=== PATIENT | male | born 1940 | race Caucasian/White ===

== ENCOUNTER 2019-11-19 12:16 | Observation (INO) ==
[2019-11-19] MEDS ORDERED: NS 0.9% 1000 ml BAG 1,000 ML IV ONE (12:49)
[2019-11-19] MEDS ORDERED: Metoprolol Tartrate 5 mg VIAL 5 ml VIAL (1 mg/ml) IV ONE ×2 (13:04→15:01)
[2019-11-19 13:57] LABS: ABS Lymphocytes 0.7 10^3/ul (1.0-4.8); ABS Monocytes 0.6 10^3/ul (0-0.8); ABS Neutrophils 4.5 10^3/ul (1.5-7.7); Eosinophil % 0.6 %; Hematocrit 40 % (42-52); Hemoglobin 13.4 g/dL (14.0-18.0); Lymphocyte % 12.7 %; Mean Corpuscular HGB Conc 34 g/dL (31-36); Mean Corpuscular Hemoglobin 31 pg (27-31); Mean Corpuscular Volume 91 fL (80-94); Mean Platelet Volume 8.8 fL (7.4-10.4); Platelet Count 146 10^3/uL (150-450); Red Blood Count 4.41 10^6 /uL (4.18-5.48); Red Cell Distribution Width 16 % (10-15); White Blood Count 5.8 10^3/uL (3.5-10.8)
[2019-11-19 14:03] LABS: INR 2.77 (0.82-1.09)
[2019-11-19 14:12] LABS: ALT 20 U/L (7-52); AST 19 U/L (13-39); Albumin 3.7 g/dL (3.2-5.2); Albumin/Globulin Ratio 1.4 (1-3); Alkaline Phosphatase 90 U/L (34-104); Anion Gap 5 mmol/L (2-11); BUN/Creatinine Ratio 25.6 (8-20); Blood Urea Nitrogen 21 mg/dL (6-24); CO2 Carbon Dioxide 27 mmol/L (22-32); Calcium 9.5 mg/dL (8.6-10.3); Chloride 109 mmol/L (101-111); EGFR African American 109.1 (>60); EGFR Non-African American 90.2 (>60); Globulin 2.6 g/dL (2-4); Glucose 109 mg/dL (70-100); Magnesium 2.1 mg/dL (1.9-2.7); Potassium 3.9 mmol/L (3.5-5.0); Sodium 141 mmol/L (135-145); Total Protein 6.3 g/dL (6.4-8.9)
[2019-11-19 14:21] LABS: Troponin I 0.03 ng/mL (<0.03)
[2019-11-19] MEDS ORDERED: Furosemide 40 mg/4 ml IV VIAL IV ONE (14:24)
[2019-11-19] MEDS ORDERED: Potassium Chlor 20 meq TAB.ER PO ONE (14:32)
[2019-11-19] MEDS ORDERED: Dextran 70/Hypromellose Tears Eye Drops 15 ml BTL (for Artificials Tears) BOTH EYES PRN (16:06)
[2019-11-19 17:07] LABS: Troponin I 0.03 ng/mL (<0.03)
[2019-11-19 18:20] LABS: TSH Ultra Thyroid Stim Horm 0.28 mcIU/mL (0.34-5.60)
[2019-11-19] MEDS: Warfarin DAILY REMINDER **NOTE FOLLOW UP SCH (18:22)
[2019-11-19 20:07] LABS: Troponin I 0.03 ng/mL (<0.03)
[2019-11-20 07:19] LABS: ABS Eosinophils 0.1 10^3/ul (0-0.6); ABS Monocytes 0.7 10^3/ul (0-0.8); ABS Neutrophils 4.5 10^3/ul (1.5-7.7); Eosinophil % 1.8 %; Hematocrit 38 % (42-52); Hemoglobin 13.3 g/dL (14.0-18.0); Lymphocyte % 15.3 %; Mean Corpuscular HGB Conc 35 g/dL (31-36); Mean Corpuscular Hemoglobin 32 pg (27-31); Mean Corpuscular Volume 92 fL (80-94); Mean Platelet Volume 9.3 fL (7.4-10.4); Nucleated Red Blood Cells % 0.1; Platelet Count 141 10^3/uL (150-450); Red Cell Distribution Width 16 % (10-15); White Blood Count 6.3 10^3/uL (3.5-10.8)
[2019-11-20 07:20] LABS: INR 2.82 (0.82-1.09)
[2019-11-20 07:36] LABS: BUN/Creatinine Ratio 27.4 (8-20); Calcium 9.6 mg/dL (8.6-10.3); EGFR African American 124.8 (>60); EGFR Non-African American 103.1 (>60); Potassium 3.8 mmol/L (3.5-5.0)
[2019-11-20] MEDS: Cholecalciferol (VIT D3) 1,000 unit TAB PO SCH (08:02)
[2019-11-20] MEDS: Aspirin EC 81 mg TAB.EC (enteric coated) PO SCH (08:02)
[2019-11-20] MEDS ORDERED: Furosemide 40 mg/4 ml IV VIAL IV SLOW PU SCH (09:00)
[2019-11-20] MEDS ORDERED: Perflutren Lipid Microsphere 3 ML VIAL ONE (13:52)
[2019-11-20 14:54] LABS: Free T4 0.97 ng/dL (0.61-1.12)
[2019-11-20] MEDS ORDERED: Furosemide 20 mg/2 ml IV VIAL IV SLOW PU ONE (17:14)
[2019-11-20] MEDS: Warfarin DAILY REMINDER **NOTE FOLLOW UP SCH (18:17)
[2019-11-21] MEDS: Aspirin EC 81 mg TAB.EC (enteric coated) PO SCH (08:47)
[2019-11-21] MEDS: Cholecalciferol (VIT D3) 1,000 unit TAB PO SCH (08:47)
[2019-11-21] MEDS ORDERED: Furosemide 20 mg/2 ml IV VIAL IV SLOW PU ONE (09:30)
[2019-11-21 09:58] VITALS: BP 143/71
== END 2019-11-21 11:50 | disposition home or self-care (01) ==
LOC: MEDTELE 12:16 → ED 12:16 → MEDTELE 16:54
PROVIDERS: ADMIT Internal Medicine; ATTEND Pediatrics

== ENCOUNTER 2021-03-04 15:57 | Inpatient (IN) ==
[2021-03-04] MEDS ORDERED: Furosemide 40 mg/4 ml IV VIAL IV SLOW PU ONE (18:14)
[2021-03-04 18:25] LABS: ABS Eosinophils 0.1 10^3/ul (0-0.6); ABS Lymphocytes 0.6 10^3/ul (1.0-4.8); ABS Monocytes 0.8 10^3/ul (0-0.8); ABS Neutrophils 6.1 10^3/ul (1.5-7.7); Hematocrit 35 % (42-52); Hemoglobin 12.2 g/dL (14.0-18.0); Lymphocyte % 8.4 %; Mean Corpuscular HGB Conc 35 g/dL (31-36); Mean Corpuscular Hemoglobin 32 pg (27-31); Mean Corpuscular Volume 91 fL (80-94); Mean Platelet Volume 8.6 fL (7.4-10.4); Platelet Count 260 10^3/uL (150-450); Red Blood Count 3.88 10^6 /uL (4.18-5.48); Red Cell Distribution Width 15 % (10-15); White Blood Count 7.6 10^3/uL (3.5-10.8)
[2021-03-04 19:23] LABS: Albumin 3.2 g/dL (3.2-5.2); Anion Gap 6 mmol/L (2-11); CO2 Carbon Dioxide 24 mmol/L (22-32); Calcium 9.5 mg/dL (8.6-10.3); Chloride 105 mmol/L (101-111); Sodium 135 mmol/L (135-145)
[2021-03-04 19:29] LABS: ALT 59 U/L (7-52); AST 70 U/L (13-39); Albumin/Globulin Ratio 0.8 (1-3); Alkaline Phosphatase 147 U/L (35-149); Blood Urea Nitrogen 30 mg/dL (6-24); Globulin 3.8 g/dL (2-4); Glucose 108 mg/dL (70-100); eGFR CKD-EPI 86.5 (>60)
[2021-03-04 19:45] LABS: Troponin I 0.03 ng/mL (<0.03)
[2021-03-04 20:03] LABS: Vitamin B12 444 pg/mL (180-914)
[2021-03-04 20:14] LABS: Ferritin > 1500.0 ng/mL (24-336)
[2021-03-04 21:14] LABS: Urine Appearance Cloudy; Urine Bilirubin Negative (Negative); Urine Blood 1+ (Negative); Urine Color Yellow; Urine Glucose Negative (Negative); Urine Ketones Negative (Negative); Urine Nitrite Negative (Negative); Urine Protein Negative (Negative); Urine Specific Gravity 1.013 (1.002-1.030); Urine Urobilinogen Negative (Negative)
[2021-03-04 21:24] LABS: Urine Bacteria 1+ (Absent); Urine Red Blood Cell 2+(6-10/hpf) (Absent); Urine Squamous Epithelial Cell Present (Absent); Urine White Blood Cell 3+(>20/hpf) (Absent)
[2021-03-04 22:06] LABS: C Reactive Protein 119.45 mg/L (<8.01)
[2021-03-05 00:18] LABS: TSH Ultra Thyroid Stim Horm 0.33 mcIU/mL (0.34-5.60)
[2021-03-05 01:37] LABS: Troponin I 0.02 ng/mL (<0.03)
[2021-03-05 06:06] LABS: ABS Eosinophils 0.1 10^3/ul (0-0.6); ABS Lymphocytes 0.5 10^3/ul (1.0-4.8); ABS Monocytes 0.7 10^3/ul (0-0.8); ABS Neutrophils 6.3 10^3/ul (1.5-7.7); Eosinophil % 1.5 %; Hematocrit 34 % (42-52); Hemoglobin 11.7 g/dL (14.0-18.0); Lymphocyte % 6.2 %; Mean Corpuscular HGB Conc 34 g/dL (31-36); Mean Corpuscular Hemoglobin 31 pg (27-31); Mean Corpuscular Volume 92 fL (80-94); Mean Platelet Volume 8.5 fL (7.4-10.4); Platelet Count 258 10^3/uL (150-450); Red Blood Count 3.74 10^6 /uL (4.18-5.48); Red Cell Distribution Width 15 % (10-15); White Blood Count 7.7 10^3/uL (3.5-10.8)
[2021-03-05] MEDS: cefTRIAXone 1 gm/50 mL NS BAG 1 GM/50 ML BAG IVPB SCH (06:22)
[2021-03-05 06:26] LABS: Albumin 2.8 g/dL (3.2-5.2); Albumin/Globulin Ratio 0.8 (1-3); Calcium 9.2 mg/dL (8.6-10.3); Globulin 3.7 g/dL (2-4); Potassium 3.6 mmol/L (3.5-5.0); Total Bilirubin 1.6 mg/dL (0.2-1.0); Total Protein 6.5 g/dL (6.4-8.9); eGFR CKD-EPI 78.9 (>60)
[2021-03-05 07:04] LABS: Free T4 1.13 ng/dL (0.61-1.12)
[2021-03-05] MEDS: Potassium Chlor 20 meq TAB.ER PO SCH (09:15)
[2021-03-05] MEDS: Aspirin EC 81 mg TAB.EC (enteric coated) PO SCH (09:15)
[2021-03-05] MEDS: Cholecalciferol (VIT D3) 1,000 unit TAB PO SCH (09:15)
[2021-03-05] MEDS: Furosemide 40 mg/4 ml IV VIAL IV SCH (09:16)
[2021-03-05] MEDS ORDERED: Iodixanol (CONTRAST) 320 MG/ML 100 ML SDV IV ONE (10:41)
[2021-03-06 00:08] LABS: Urine Appearance Clear; Urine Color Yellow; Urine pH 5 (5-9)
[2021-03-06 00:09] LABS: Urine Blood Negative (Negative); Urine Ketones Negative (Negative); Urine Protein Negative (Negative); Urine Urobilinogen Negative (Negative)
[2021-03-06 00:10] LABS: Urine Bilirubin Negative (Negative); Urine Glucose Negative (Negative); Urine Nitrite Negative (Negative)
[2021-03-06 00:11] LABS: Urine Bacteria Absent (Absent); Urine Red Blood Cell 2+(6-10/hpf) (Absent); Urine Squamous Epithelial Cell Present (Absent); Urine White Blood Cell 3+(>20/hpf) (Absent)
[2021-03-06] MEDS: cefTRIAXone 1 gm/50 mL NS BAG 1 GM/50 ML BAG IVPB SCH (05:14)
[2021-03-06 08:57] LABS: ABS Lymphocytes 0.4 10^3/ul (1.0-4.8); ABS Monocytes 0.2 10^3/ul (0-0.8); ABS Neutrophils 3.3 10^3/ul (1.5-7.7); Eosinophil % 0.1 %; Hematocrit 37 % (42-52); Hemoglobin 12.5 g/dL (14.0-18.0); Lymphocyte % 10.8 %; Mean Corpuscular HGB Conc 34 g/dL (31-36); Mean Corpuscular Hemoglobin 31 pg (27-31); Mean Corpuscular Volume 91 fL (80-94); Mean Platelet Volume 8.6 fL (7.4-10.4); Nucleated Red Blood Cells % 0.1; Platelet Count 308 10^3/uL (150-450); Red Blood Count 4.04 10^6 /uL (4.18-5.48); Red Cell Distribution Width 15 % (10-15); White Blood Count 3.9 10^3/uL (3.5-10.8)
[2021-03-06] MEDS: Cholecalciferol (VIT D3) 1,000 unit TAB PO SCH (09:08)
[2021-03-06] MEDS: Aspirin EC 81 mg TAB.EC (enteric coated) PO SCH (09:09)
[2021-03-06] MEDS: Potassium Chlor 20 meq TAB.ER PO SCH (09:09)
[2021-03-06] MEDS: Furosemide 40 mg/4 ml IV VIAL IV SCH ×2 (09:10→21:08)
[2021-03-06 09:14] LABS: Albumin 3.1 g/dL (3.2-5.2); Albumin/Globulin Ratio 0.7 (1-3); Calcium 10.1 mg/dL (8.6-10.3); Globulin 4.3 g/dL (2-4); Magnesium 2.2 mg/dL (1.9-2.7); Potassium 4.6 mmol/L (3.5-5.0); Total Bilirubin 1.4 mg/dL (0.2-1.0); Total Protein 7.4 g/dL (6.4-8.9); eGFR CKD-EPI 87.1 (>60)
[2021-03-06 15:24] LABS: % Iron Saturation 14 % (14 - 50); Total Iron Binding Capacity 162 mcg/dL (250 - 400)
[2021-03-07] MEDS: cefTRIAXone 1 gm/50 mL NS BAG 1 GM/50 ML BAG IVPB SCH (05:24)
[2021-03-07 06:47] LABS: ABS Lymphocytes 0.6 10^3/ul (1.0-4.8); ABS Monocytes 0.7 10^3/ul (0-0.8); ABS Neutrophils 7.8 10^3/ul (1.5-7.7); Hematocrit 33 % (42-52); Hemoglobin 11.2 g/dL (14.0-18.0); Mean Corpuscular HGB Conc 34 g/dL (31-36); Mean Corpuscular Hemoglobin 31 pg (27-31); Mean Corpuscular Volume 91 fL (80-94); Mean Platelet Volume 8.4 fL (7.4-10.4); Nucleated Red Blood Cells % 0.1; Platelet Count 312 10^3/uL (150-450); Red Blood Count 3.65 10^6 /uL (4.18-5.48); Red Cell Distribution Width 15 % (10-15); White Blood Count 9.2 10^3/uL (3.5-10.8)
[2021-03-07 07:03] LABS: Albumin 2.7 g/dL (3.2-5.2); Albumin/Globulin Ratio 0.8 (1-3); Calcium 9.6 mg/dL (8.6-10.3); Globulin 3.6 g/dL (2-4); Potassium 4.3 mmol/L (3.5-5.0); Total Bilirubin 0.9 mg/dL (0.2-1.0); Total Protein 6.3 g/dL (6.4-8.9); eGFR CKD-EPI 88.7 (>60)
[2021-03-07] MEDS: Aspirin EC 81 mg TAB.EC (enteric coated) PO SCH (09:47)
[2021-03-07] MEDS: Cholecalciferol (VIT D3) 1,000 unit TAB PO SCH (09:47)
[2021-03-07] MEDS: Potassium Chlor 20 meq TAB.ER PO SCH (09:47)
[2021-03-07] MEDS: Furosemide 40 mg/4 ml IV VIAL IV SCH ×2 (09:48→15:58)
[2021-03-08] MEDS: cefTRIAXone 1 gm/50 mL NS BAG 1 GM/50 ML BAG IVPB SCH (05:02)
[2021-03-08 06:06] LABS: Potassium 4.4 mmol/L (3.5-5.0); eGFR CKD-EPI 79.9 (>60)
[2021-03-08 06:49] LABS: Magnesium 2.2 mg/dL (1.9-2.7)
[2021-03-08 08:20] LABS: C Reactive Protein 17.06 mg/L (<8.01)
[2021-03-08] MEDS: Potassium Chlor 20 meq TAB.ER PO SCH (08:51)
[2021-03-08] MEDS: Cholecalciferol (VIT D3) 1,000 unit TAB PO SCH (08:52)
[2021-03-08] MEDS: Aspirin EC 81 mg TAB.EC (enteric coated) PO SCH (08:52)
[2021-03-08] MEDS: Furosemide 40 mg/4 ml IV VIAL IV SCH ×2 (08:52→17:19)
[2021-03-09] MEDS: cefTRIAXone 1 gm/50 mL NS BAG 1 GM/50 ML BAG IVPB SCH (05:27)
[2021-03-09 06:28] LABS: ABS Lymphocytes 0.8 10^3/ul (1.0-4.8); ABS Monocytes 1.2 10^3/ul (0-0.8); ABS Neutrophils 7.4 10^3/ul (1.5-7.7); Eosinophil % 0.1 %; Hematocrit 34 % (42-52); Hemoglobin 11.5 g/dL (14.0-18.0); Lymphocyte % 8.3 %; Mean Corpuscular HGB Conc 34 g/dL (31-36); Mean Corpuscular Hemoglobin 30 pg (27-31); Mean Corpuscular Volume 91 fL (80-94); Mean Platelet Volume 8.3 fL (7.4-10.4); Platelet Count 325 10^3/uL (150-450); Red Blood Count 3.78 10^6 /uL (4.18-5.48); Red Cell Distribution Width 15 % (10-15); White Blood Count 9.5 10^3/uL (3.5-10.8)
[2021-03-09 06:55] LABS: Calcium 10.3 mg/dL (8.6-10.3); Magnesium 2.3 mg/dL (1.9-2.7); Potassium 4.1 mmol/L (3.5-5.0); eGFR CKD-EPI 86.1 (>60)
[2021-03-09] MEDS ORDERED: Albuterol HFA INHALER 8 gm MDI INH PRN (08:44)
[2021-03-09] MEDS: Furosemide 40 mg/4 ml IV VIAL IV SCH ×2 (09:17→15:46)
[2021-03-09] MEDS: Potassium Chlor 20 meq TAB.ER PO SCH (09:18)
[2021-03-09] MEDS: Aspirin EC 81 mg TAB.EC (enteric coated) PO SCH (09:18)
[2021-03-09] MEDS: Cholecalciferol (VIT D3) 1,000 unit TAB PO SCH (09:18)
[2021-03-09] MEDS: Albuterol/Ipratropium NEB.SOL (2.5/0.5 MG) 3 ML NEB.SOLN INH SCH ×3 (11:20→19:21)
[2021-03-09] MEDS: methylPREDNISolone SOD 40 mg/ml 1 ml VIAL IV SCH (20:20)
[2021-03-10] MEDS: methylPREDNISolone SOD 40 mg/ml 1 ml VIAL IV SCH ×2 (05:27→18:29)
[2021-03-10] MEDS: cefTRIAXone 1 gm/50 mL NS BAG 1 GM/50 ML BAG IVPB SCH (05:30)
[2021-03-10 05:42] LABS: ABS Lymphocytes 0.4 10^3/ul (1.0-4.8); ABS Monocytes 0.2 10^3/ul (0-0.8); ABS Neutrophils 6.1 10^3/ul (1.5-7.7); Hematocrit 34 % (42-52); Hemoglobin 11.4 g/dL (14.0-18.0); Lymphocyte % 5.4 %; Mean Corpuscular HGB Conc 34 g/dL (31-36); Mean Corpuscular Hemoglobin 31 pg (27-31); Mean Corpuscular Volume 91 fL (80-94); Mean Platelet Volume 8.5 fL (7.4-10.4); Nucleated Red Blood Cells % 0.1; Platelet Count 320 10^3/uL (150-450); Red Blood Count 3.73 10^6 /uL (4.18-5.48); Red Cell Distribution Width 15 % (10-15); White Blood Count 6.7 10^3/uL (3.5-10.8)
[2021-03-10] MEDS: Albuterol/Ipratropium NEB.SOL (2.5/0.5 MG) 3 ML NEB.SOLN INH SCH (09:58)
[2021-03-10] MEDS ORDERED: Albuterol/Ipratropium NEB.SOL (2.5/0.5 MG) 3 ML NEB.SOLN INH PRN (09:59)
[2021-03-10] MEDS: Potassium Chlor 20 meq TAB.ER PO SCH (10:30)
[2021-03-10] MEDS: Cholecalciferol (VIT D3) 1,000 unit TAB PO SCH (10:30)
[2021-03-10] MEDS: Furosemide 40 mg/4 ml IV VIAL IV SCH ×2 (10:31→15:15)
[2021-03-10] MEDS: Aspirin EC 81 mg TAB.EC (enteric coated) PO SCH (10:31)
[2021-03-11] MEDS: cefTRIAXone 1 gm/50 mL NS BAG 1 GM/50 ML BAG IVPB SCH (05:05)
[2021-03-11] MEDS: methylPREDNISolone SOD 40 mg/ml 1 ml VIAL IV SCH ×2 (05:05→17:49)
[2021-03-11 06:20] LABS: Calcium 10.2 mg/dL (8.6-10.3); Magnesium 2.4 mg/dL (1.9-2.7); Potassium 4.8 mmol/L (3.5-5.0); eGFR CKD-EPI 90.1 (>60)
[2021-03-11] MEDS: Furosemide 40 mg/4 ml IV VIAL IV SCH ×2 (09:39→17:20)
[2021-03-11] MEDS: Potassium Chlor 20 meq TAB.ER PO SCH (09:43)
[2021-03-11] MEDS: Cholecalciferol (VIT D3) 1,000 unit TAB PO SCH (09:45)
[2021-03-11] MEDS: Aspirin EC 81 mg TAB.EC (enteric coated) PO SCH (09:45)
[2021-03-11] MEDS ORDERED: Metoprolol Succinate XL 200 mg TAB PO SCH (18:00)
[2021-03-11] MEDS ORDERED: Metoprolol Tartrate 5 mg VIAL 5 ml VIAL (1 mg/ml) IV ONE (19:22)
[2021-03-12] MEDS: cefTRIAXone 1 gm/50 mL NS BAG 1 GM/50 ML BAG IVPB SCH (06:19)
[2021-03-12] MEDS: methylPREDNISolone SOD 40 mg/ml 1 ml VIAL IV SCH ×2 (06:19→17:24)
[2021-03-12] MEDS: Furosemide 40 mg/4 ml IV VIAL IV SCH ×2 (09:04→16:05)
[2021-03-12] MEDS: Potassium Chlor 20 meq TAB.ER PO SCH (09:05)
[2021-03-12] MEDS: Cholecalciferol (VIT D3) 1,000 unit TAB PO SCH (09:06)
[2021-03-12] MEDS: Aspirin EC 81 mg TAB.EC (enteric coated) PO SCH (09:06)
[2021-03-12] MEDS: Metoprolol Succinate XL 200 mg TAB PO SCH (17:24)
[2021-03-13] MEDS: cefTRIAXone 1 gm/50 mL NS BAG 1 GM/50 ML BAG IVPB SCH (05:28)
[2021-03-13] MEDS: methylPREDNISolone SOD 40 mg/ml 1 ml VIAL IV SCH ×2 (05:35→17:16)
[2021-03-13 07:00] LABS: Blood Urea Nitrogen 37 mg/dL (6-24); CO2 Carbon Dioxide 35 mmol/L (22-32); Calcium 10.2 mg/dL (8.6-10.3); Chloride 101 mmol/L (101-111); Glucose 138 mg/dL (70-100); Magnesium 2.4 mg/dL (1.9-2.7); Potassium 4.6 mmol/L (3.5-5.0); Sodium 136 mmol/L (135-145)
[2021-03-13] MEDS: Potassium Chlor 20 meq TAB.ER PO SCH (09:22)
[2021-03-13] MEDS: Cholecalciferol (VIT D3) 1,000 unit TAB PO SCH (09:22)
[2021-03-13] MEDS: Aspirin EC 81 mg TAB.EC (enteric coated) PO SCH (09:22)
[2021-03-13] MEDS: Metoprolol Succinate XL 200 mg TAB PO SCH (09:23)
[2021-03-13] MEDS: Furosemide 40 mg/4 ml IV VIAL IV SCH (10:16)
[2021-03-13] MEDS: Furosemide 100 mg/10 ml IV VIAL IV SCH ×2 (10:17→15:22)
[2021-03-14] MEDS: cefTRIAXone 1 gm/50 mL NS BAG 1 GM/50 ML BAG IVPB SCH (05:18)
[2021-03-14] MEDS: methylPREDNISolone SOD 40 mg/ml 1 ml VIAL IV SCH ×2 (05:18→17:35)
[2021-03-14] MEDS: Metoprolol Succinate XL 200 mg TAB PO SCH (09:07)
[2021-03-14] MEDS: Aspirin EC 81 mg TAB.EC (enteric coated) PO SCH (09:08)
[2021-03-14] MEDS: Potassium Chlor 20 meq TAB.ER PO SCH (09:08)
[2021-03-14] MEDS: Cholecalciferol (VIT D3) 1,000 unit TAB PO SCH (09:08)
[2021-03-15 00:37] LABS: Calcium 9.8 mg/dL (8.6-10.3); Magnesium 2.3 mg/dL (1.9-2.7); Potassium 4.4 mmol/L (3.5-5.0); eGFR CKD-EPI 72.5 (>60)
[2021-03-15] MEDS: methylPREDNISolone SOD 40 mg/ml 1 ml VIAL IV SCH (05:44)
[2021-03-15 06:52] LABS: ABS Lymphocytes 0.6 10^3/ul (1.0-4.8); ABS Monocytes 0.6 10^3/ul (0-0.8); ABS Neutrophils 8.3 10^3/ul (1.5-7.7); Hematocrit 38 % (42-52); Hemoglobin 13.1 g/dL (14.0-18.0); Lymphocyte % 6.6 %; Mean Corpuscular HGB Conc 34 g/dL (31-36); Mean Corpuscular Hemoglobin 31 pg (27-31); Mean Corpuscular Volume 91 fL (80-94); Mean Platelet Volume 8.3 fL (7.4-10.4); Nucleated Red Blood Cells % 0.1; Platelet Count 337 10^3/uL (150-450); Red Cell Distribution Width 14 % (10-15); White Blood Count 9.6 10^3/uL (3.5-10.8)
[2021-03-15 07:11] LABS: Calcium 9.9 mg/dL (8.6-10.3); Potassium 4.5 mmol/L (3.5-5.0); eGFR CKD-EPI 87.7 (>60)
[2021-03-15] MEDS: Aspirin EC 81 mg TAB.EC (enteric coated) PO SCH (09:15)
[2021-03-15] MEDS: Cholecalciferol (VIT D3) 1,000 unit TAB PO SCH (09:16)
[2021-03-15] MEDS: Potassium Chlor 20 meq TAB.ER PO SCH (09:16)
[2021-03-15] MEDS: Metoprolol Succinate XL 200 mg TAB PO SCH (09:18)
[2021-03-15 11:40] VITALS: BP 118/74
== END 2021-03-15 16:30 | disposition home health service (06) | DRG 189 ==
LOC: ED 15:57 → MEDTELE 20:23 → SUATTDRO 20:23 → MEDTELE 03-05 01:51
PROVIDERS: ADMIT Student in an Organized Health Care Education/Training Program; ATTEND Hospitalist

== ENCOUNTER 2021-03-30 12:02 | Inpatient (IN) ==
[2021-03-30] MEDS ORDERED: Diltiazem IV push/loading dose 5 MG/ML 5 ML vial (25 mg) IV SLOW PU ONE (12:38)
[2021-03-30] MEDS ORDERED: NS 0.9% 1000 ml BAG 1,000 ML IV ONE (12:41)
[2021-03-30 12:43] LABS: ABS Lymphocytes 0.5 10^3/ul (1.0-4.8); ABS Monocytes 0.3 10^3/ul (0-0.8); ABS Neutrophils 3.8 10^3/ul (1.5-7.7); Eosinophil % 0.5 %; Hematocrit 38 % (42-52); Hemoglobin 12.6 g/dL (14.0-18.0); Lymphocyte % 11.5 %; Mean Corpuscular HGB Conc 33 g/dL (31-36); Mean Corpuscular Hemoglobin 30 pg (27-31); Mean Corpuscular Volume 91 fL (80-94); Mean Platelet Volume 8.7 fL (7.4-10.4); Platelet Count 100 10^3/uL (150-450); Red Blood Count 4.16 10^6 /uL (4.18-5.48); Red Cell Distribution Width 16 % (10-15); White Blood Count 4.8 10^3/uL (3.5-10.8)
[2021-03-30 13:00] LABS: ALT 33 U/L (7-52); AST 21 U/L (13-39); Albumin 3.1 g/dL (3.2-5.2); Albumin/Globulin Ratio 1.2 (1-3); Alkaline Phosphatase 81 U/L (35-149); Anion Gap 7 mmol/L (2-11); Blood Urea Nitrogen 25 mg/dL (6-24); CO2 Carbon Dioxide 27 mmol/L (22-32); Calcium 9.1 mg/dL (8.6-10.3); Chloride 105 mmol/L (101-111); Globulin 2.5 g/dL (2-4); Glucose 108 mg/dL (70-100); Magnesium 1.9 mg/dL (1.9-2.7); Potassium 3.4 mmol/L (3.5-5.0); Sodium 139 mmol/L (135-145); Total Protein 5.6 g/dL (6.4-8.9); eGFR CKD-EPI 84.1 (>60)
[2021-03-30] MEDS ORDERED: Diltiazem IV BAG D5W Premix 125 MG/125 ML BAG IV SCH (13:00)
[2021-03-30 13:05] LABS: Troponin I 0.03 ng/mL (<0.03)
[2021-03-30] MEDS ORDERED: Potassium Chloride LIQUID 20 MEQ/15 ML LIQUID PO ONE (13:12)
[2021-03-30] MEDS ORDERED: Magnesium Sulfate 2 gm BAG 2 GM/50 ML BAG IVPB ONE (13:13)
[2021-03-30 13:40] LABS: TSH Ultra Thyroid Stim Horm 0.77 mcIU/mL (0.34-5.60)
[2021-03-30] MEDS ORDERED: Ondansetron 4 mg VIAL 2 MG/ML 2 ml VIAL IV PRN (15:32)
[2021-03-30] MEDS ORDERED: Albuterol HFA INHALER 8 gm MDI INH PRN (15:39)
[2021-03-30 18:12] LABS: Troponin I 0.04 ng/mL (<0.03)
[2021-03-30 20:58] LABS: Troponin I 0.04 ng/mL (<0.03)
[2021-03-30] MEDS: Nystatin TOP POWDER 15 GM BTL TOPICAL SCH (21:05)
[2021-03-31 01:04] LABS: Calcium 8.4 mg/dL (8.6-10.3); Magnesium 2.3 mg/dL (1.9-2.7); Potassium 3.5 mmol/L (3.5-5.0); eGFR CKD-EPI 80.9 (>60)
[2021-03-31] MEDS ORDERED: Potassium EFFERVES 25 meq TAB PO ONE (01:27)
[2021-03-31 07:02] LABS: Albumin 2.6 g/dL (3.2-5.2); Albumin/Globulin Ratio 1.3 (1-3); Calcium 8.2 mg/dL (8.6-10.3); Magnesium 2.2 mg/dL (1.9-2.7); Potassium 4.2 mmol/L (3.5-5.0); Total Bilirubin 0.7 mg/dL (0.2-1.0); Total Protein 4.6 g/dL (6.4-8.9); eGFR CKD-EPI 86.5 (>60)
[2021-03-31 07:03] LABS: ABS Eosinophils 0.1 10^3/ul (0-0.6); ABS Lymphocytes 0.6 10^3/ul (1.0-4.8); ABS Monocytes 0.5 10^3/ul (0-0.8); ABS Neutrophils 3.7 10^3/ul (1.5-7.7); Eosinophil % 1.4 %; Hematocrit 33 % (42-52); Hemoglobin 11.1 g/dL (14.0-18.0); Lymphocyte % 12.2 %; Mean Corpuscular HGB Conc 34 g/dL (31-36); Mean Corpuscular Hemoglobin 31 pg (27-31); Mean Corpuscular Volume 91 fL (80-94); Mean Platelet Volume 8.3 fL (7.4-10.4); Platelet Count 93 10^3/uL (150-450); Red Cell Distribution Width 16 % (10-15); White Blood Count 4.9 10^3/uL (3.5-10.8)
[2021-03-31] MEDS ORDERED: Heparin DRIP 25,000 UNITS BAG 25,000 UNITS/500 ML BAG IV SCH (09:30)
[2021-03-31 09:49] LABS: ABS Eosinophils 0.1 10^3/ul (0-0.6); ABS Lymphocytes 0.6 10^3/ul (1.0-4.8); ABS Monocytes 0.4 10^3/ul (0-0.8); ABS Neutrophils 3.4 10^3/ul (1.5-7.7); Eosinophil % 1.6 %; Hematocrit 35 % (42-52); Hemoglobin 11.6 g/dL (14.0-18.0); Lymphocyte % 12.6 %; Mean Corpuscular HGB Conc 33 g/dL (31-36); Mean Corpuscular Hemoglobin 30 pg (27-31); Mean Corpuscular Volume 91 fL (80-94); Mean Platelet Volume 8.2 fL (7.4-10.4); Platelet Count 98 10^3/uL (150-450); Red Blood Count 3.82 10^6 /uL (4.18-5.48); Red Cell Distribution Width 16 % (10-15); White Blood Count 4.4 10^3/uL (3.5-10.8)
[2021-03-31] MEDS ORDERED: Heparin 5000 UNITS/ML 1 mL VIAL IV SCH (10:00)
[2021-03-31 10:08] LABS: eGFR CKD-EPI 87.7 (>60)
[2021-03-31] MEDS: Metoprolol Succinate XL 200 mg TAB PO SCH (11:26)
[2021-03-31] MEDS: Cholecalciferol (VIT D3) 1,000 unit TAB PO SCH (11:26)
[2021-03-31] MEDS: Potassium Chlor 20 meq TAB.ER PO SCH (11:27)
[2021-03-31] MEDS: Nystatin TOP POWDER 15 GM BTL TOPICAL SCH ×3 (11:29→21:13)
[2021-04-01 05:48] LABS: ABS Lymphocytes 0.7 10^3/ul (1.0-4.8); ABS Monocytes 0.5 10^3/ul (0-0.8); ABS Neutrophils 3.2 10^3/ul (1.5-7.7); Eosinophil % 0.7 %; Hematocrit 33 % (42-52); Lymphocyte % 14.7 %; Mean Corpuscular HGB Conc 34 g/dL (31-36); Mean Corpuscular Hemoglobin 31 pg (27-31); Mean Corpuscular Volume 91 fL (80-94); Mean Platelet Volume 8.2 fL (7.4-10.4); Platelet Count 104 10^3/uL (150-450); Red Blood Count 3.61 10^6 /uL (4.18-5.48); Red Cell Distribution Width 16 % (10-15); White Blood Count 4.4 10^3/uL (3.5-10.8)
[2021-04-01 06:01] LABS: Calcium 8.8 mg/dL (8.6-10.3); Magnesium 2.1 mg/dL (1.9-2.7); Potassium 3.8 mmol/L (3.5-5.0); eGFR CKD-EPI 91.2 (>60)
[2021-04-01] MEDS: Potassium Chlor 20 meq TAB.ER PO SCH (08:31)
[2021-04-01] MEDS: Cholecalciferol (VIT D3) 1,000 unit TAB PO SCH (08:31)
[2021-04-01] MEDS: Metoprolol Succinate XL 200 mg TAB PO SCH (08:33)
[2021-04-01] MEDS: Nystatin TOP POWDER 15 GM BTL TOPICAL SCH ×3 (08:34→20:17)
[2021-04-01] MEDS ORDERED: Metoprolol Tartrate 5 mg VIAL 5 ml VIAL (1 mg/ml) IV ONE ×2 (09:18→10:30)
[2021-04-01 14:36] LABS: Free T3 2.4 pg/mL (2.5-3.9)
[2021-04-01 14:38] LABS: Free T4 0.88 ng/dL (0.61-1.12)
[2021-04-01] MEDS: Enoxaparin 100 MG/ML SYR SUBCUT SCH (20:15)
[2021-04-02 06:04] LABS: ABS Lymphocytes 0.8 10^3/ul (1.0-4.8); ABS Monocytes 0.6 10^3/ul (0-0.8); ABS Neutrophils 3.6 10^3/ul (1.5-7.7); Eosinophil % 0.9 %; Hematocrit 35 % (42-52); Lymphocyte % 16.2 %; Mean Corpuscular HGB Conc 34 g/dL (31-36); Mean Corpuscular Hemoglobin 31 pg (27-31); Mean Corpuscular Volume 91 fL (80-94); Mean Platelet Volume 7.8 fL (7.4-10.4); Platelet Count 128 10^3/uL (150-450); Red Cell Distribution Width 16 % (10-15)
[2021-04-02 06:18] LABS: Calcium 9.2 mg/dL (8.6-10.3); eGFR CKD-EPI 86.1 (>60)
[2021-04-02] MEDS ORDERED: Metoprolol Tartrate 5 mg VIAL 5 ml VIAL (1 mg/ml) IV ONE (06:50)
[2021-04-02] MEDS: Enoxaparin 100 MG/ML SYR SUBCUT SCH ×2 (08:05→19:44)
[2021-04-02] MEDS: Cholecalciferol (VIT D3) 1,000 unit TAB PO SCH (08:05)
[2021-04-02] MEDS: Potassium Chlor 20 meq TAB.ER PO SCH (08:05)
[2021-04-02] MEDS: Metoprolol Succinate XL 200 mg TAB PO SCH (08:05)
[2021-04-02] MEDS: Nystatin TOP POWDER 15 GM BTL TOPICAL SCH ×3 (08:11→21:15)
[2021-04-02] MEDS ORDERED: Digoxin IV 0.5 MG/2 ML AMP (0.25 MG/ML) IV SLOW PU ONE (09:22)
[2021-04-03] MEDS ORDERED: Digoxin IV 0.5 MG/2 ML AMP (0.25 MG/ML) IV SLOW PU ONE (04:28)
[2021-04-03] MEDS ORDERED: Digoxin IV 0.5 MG/2 ML AMP (0.25 MG/ML) ONE (04:29)
[2021-04-03 06:11] LABS: ABS Lymphocytes 0.8 10^3/ul (1.0-4.8); ABS Monocytes 0.4 10^3/ul (0-0.8); ABS Neutrophils 3.3 10^3/ul (1.5-7.7); Hematocrit 37 % (42-52); Mean Corpuscular HGB Conc 33 g/dL (31-36); Mean Corpuscular Hemoglobin 30 pg (27-31); Mean Corpuscular Volume 91 fL (80-94); Mean Platelet Volume 7.6 fL (7.4-10.4); Nucleated Red Blood Cells % 0.1; Platelet Count 145 10^3/uL (150-450); Red Blood Count 4.02 10^6 /uL (4.18-5.48); Red Cell Distribution Width 16 % (10-15); White Blood Count 4.6 10^3/uL (3.5-10.8)
[2021-04-03 06:31] LABS: Calcium 9.7 mg/dL (8.6-10.3); Magnesium 1.9 mg/dL (1.9-2.7); Potassium 3.4 mmol/L (3.5-5.0); eGFR CKD-EPI 85.6 (>60)
[2021-04-03] MEDS: Potassium Chlor 20 meq TAB.ER PO SCH (08:20)
[2021-04-03] MEDS: Cholecalciferol (VIT D3) 1,000 unit TAB PO SCH (08:20)
[2021-04-03] MEDS: Enoxaparin 80 MG/0.8 ML SYR SUBCUT SCH ×2 (08:21→21:04)
[2021-04-03] MEDS: Nystatin TOP POWDER 15 GM BTL TOPICAL SCH ×3 (08:21→21:06)
[2021-04-04 08:31] LABS: ABS Eosinophils 0.1 10^3/ul (0-0.6); ABS Monocytes 0.7 10^3/ul (0-0.8); ABS Neutrophils 3.1 10^3/ul (1.5-7.7); Eosinophil % 1.7 %; Hematocrit 36 % (42-52); Hemoglobin 11.8 g/dL (14.0-18.0); Mean Corpuscular HGB Conc 33 g/dL (31-36); Mean Corpuscular Hemoglobin 30 pg (27-31); Mean Corpuscular Volume 91 fL (80-94); Nucleated Red Blood Cells % 0.1; Platelet Count 155 10^3/uL (150-450); Red Blood Count 3.96 10^6 /uL (4.18-5.48); Red Cell Distribution Width 16 % (10-15); White Blood Count 4.8 10^3/uL (3.5-10.8)
[2021-04-04 08:52] LABS: Calcium 9.4 mg/dL (8.6-10.3); Potassium 3.7 mmol/L (3.5-5.0); eGFR CKD-EPI 85.3 (>60)
[2021-04-04] MEDS: Cholecalciferol (VIT D3) 1,000 unit TAB PO SCH (10:24)
[2021-04-04] MEDS: Enoxaparin 80 MG/0.8 ML SYR SUBCUT SCH (10:24)
[2021-04-04] MEDS: Nystatin TOP POWDER 15 GM BTL TOPICAL SCH ×3 (10:25→21:15)
[2021-04-04] MEDS: Potassium Chlor 20 meq TAB.ER PO SCH (10:25)
[2021-04-05] MEDS ORDERED: NS 0.9% 1000 ml BAG 1,000 ML IV SCH (06:00)
[2021-04-05] MEDS: Cholecalciferol (VIT D3) 1,000 unit TAB PO SCH (08:34)
[2021-04-05] MEDS: Potassium Chlor 20 meq TAB.ER PO SCH (08:35)
[2021-04-05] MEDS ORDERED: ceFAZolin 2 GM in NS PREMIX 2 GM/100 ML BAG IVPB ONE (09:00)
[2021-04-05] MEDS ORDERED: Lidocaine 1% VIAL 10 MG/ML VIAL ONE (11:09)
[2021-04-05] MEDS ORDERED: Midazolam 5 mg/5 ml VIAL 1 mg/ml 5 ml VIAL (5 mg) ONE (11:09)
[2021-04-05] MEDS ORDERED: Iohexol 300 (CONTRAST) 10 ML SDV ONE (11:09)
[2021-04-05] MEDS ORDERED: fentaNYL 100 mcg/2 ml 50 MCG/ML VIAL ONE (11:09)
[2021-04-05] MEDS ORDERED: Morphine 10 MG/ML VIAL (1 ml) ONE (12:18)
[2021-04-05] MEDS: Nystatin TOP POWDER 15 GM BTL TOPICAL SCH ×3 (14:31→20:58)
[2021-04-05] MEDS: ceFAZolin VIAL 1 GM in NS 0.9% 50 ML 50 ML IVPB SCH (19:54)
[2021-04-06] MEDS: ceFAZolin VIAL 1 GM in NS 0.9% 50 ML 50 ML IVPB SCH ×2 (03:12→12:00)
[2021-04-06] MEDS: Potassium Chlor 20 meq TAB.ER PO SCH (10:07)
[2021-04-06] MEDS: Cholecalciferol (VIT D3) 1,000 unit TAB PO SCH (10:07)
[2021-04-06] MEDS: Nystatin TOP POWDER 15 GM BTL TOPICAL SCH (10:09)
[2021-04-06 11:55] VITALS: BP 143/67
== END 2021-04-06 14:20 | disposition home or self-care (01) | DRG 243 ==
LOC: ED 12:02 → MEDTELE 12:02
PROVIDERS: ADMIT Hospitalist; ATTEND Internal Medicine

== ENCOUNTER 2021-04-20 12:52 | Inpatient (IN) ==
[2021-04-20] MEDS ORDERED: Diltiazem IV push/loading dose 5 MG/ML 5 ML vial (25 mg) IV SLOW PU ONE ×2 (13:46→14:23)
[2021-04-20 13:58] LABS: ABS Lymphocytes 0.4 10^3/ul (1.0-4.8); ABS Monocytes 0.2 10^3/ul (0-0.8); ABS Neutrophils 5.1 10^3/ul (1.5-7.7); Eosinophil % 0.1 %; Hematocrit 35 % (42-52); Hemoglobin 11.6 g/dL (14.0-18.0); Lymphocyte % 6.9 %; Mean Corpuscular HGB Conc 34 g/dL (31-36); Mean Corpuscular Hemoglobin 31 pg (27-31); Mean Corpuscular Volume 91 fL (80-94); Mean Platelet Volume 8.4 fL (7.4-10.4); Platelet Count 234 10^3/uL (150-450); Red Blood Count 3.78 10^6 /uL (4.18-5.48); Red Cell Distribution Width 17 % (10-15); White Blood Count 5.8 10^3/uL (3.5-10.8)
[2021-04-20 14:46] LABS: Albumin 3.5 g/dL (3.2-5.2); Calcium 9.9 mg/dL (8.6-10.3); Potassium 3.5 mmol/L (3.5-5.0); Total Protein 5.9 g/dL (6.4-8.9); eGFR CKD-EPI 70.1 (>60)
[2021-04-20 14:47] LABS: Albumin/Globulin Ratio 1.5 (1-3); Globulin 2.4 g/dL (2-4); Total Bilirubin 0.5 mg/dL (0.2-1.0)
[2021-04-20 15:05] LABS: High Sensitivity Troponin 1 Hr 20 pg/mL (<20)
[2021-04-20] MEDS: Diltiazem (ADVAN VIAL) 100 MG/100 ML ADDV.BAG IV SCH ×2 (15:27→20:47)
[2021-04-20] MEDS ORDERED: Albuterol HFA INHALER 8 gm MDI INH PRN (18:33)
[2021-04-20] MEDS ORDERED: Neosporin TOPICAL OINT PACKET TOPICAL PRN (18:33)
[2021-04-20] MEDS ORDERED: Senna/Docusate 8.6/50 mg (NF) TAB PO SCH (21:00)
[2021-04-20] MEDS ORDERED: Metoprolol Tartrate 5 mg VIAL 5 ml VIAL (1 mg/ml) IV ONE (21:25)
[2021-04-20] MEDS: Senna TAB 8.6 mg TAB PO SCH (21:53)
[2021-04-20] MEDS: Docusate LIQ 100 MG/10 ML UDC PO SCH (21:53)
[2021-04-21] MEDS: Ketorolac 0.5% OPHTH (NF) 0.5 % 5 ML BTL RIGHT EYE SCH ×4 (00:58→22:00)
[2021-04-21] MEDS: prednisoLONE 1% OPHTH.SUSP 5 ML OPHTH.SUSP RIGHT EYE SCH ×4 (00:58→22:00)
[2021-04-21] MEDS: Ciprofloxacin 0.3% OPTH.SOL 5 ML BTL RIGHT EYE SCH ×3 (00:58→22:00)
[2021-04-21] MEDS ORDERED: Lactated Ringers 500 ml BAG 500 ML IV SCH (03:00)
[2021-04-21 05:14] LABS: ABS Lymphocytes 1.2 10^3/ul (1.0-4.8); ABS Monocytes 0.8 10^3/ul (0-0.8); ABS Neutrophils 4.5 10^3/ul (1.5-7.7); Eosinophil % 0.6 %; Hematocrit 32 % (42-52); Hemoglobin 10.7 g/dL (14.0-18.0); Lymphocyte % 18.8 %; Mean Corpuscular HGB Conc 33 g/dL (31-36); Mean Corpuscular Hemoglobin 31 pg (27-31); Mean Corpuscular Volume 92 fL (80-94); Mean Platelet Volume 8.4 fL (7.4-10.4); Platelet Count 213 10^3/uL (150-450); Red Blood Count 3.51 10^6 /uL (4.18-5.48); Red Cell Distribution Width 17 % (10-15); White Blood Count 6.6 10^3/uL (3.5-10.8)
[2021-04-21 06:01] LABS: Calcium 9.4 mg/dL (8.6-10.3); Magnesium 2.1 mg/dL (1.9-2.7); Potassium 3.7 mmol/L (3.5-5.0); eGFR CKD-EPI 85.3 (>60)
[2021-04-21] MEDS: Potassium Chlor 20 meq TAB.ER PO SCH (09:03)
[2021-04-21] MEDS: Cholecalciferol (VIT D3) 1,000 unit TAB PO SCH (09:04)
[2021-04-21] MEDS: Aspirin EC 81 mg TAB.EC (enteric coated) PO SCH (09:04)
[2021-04-21] MEDS: Docusate LIQ 100 MG/10 ML UDC PO SCH ×2 (09:04→21:39)
[2021-04-21] MEDS: Senna TAB 8.6 mg TAB PO SCH ×2 (09:04→21:38)
[2021-04-22] MEDS ORDERED: Digoxin IV 0.5 MG/2 ML AMP (0.25 MG/ML) IV SLOW PU ONE ×3 (04:46→18:00)
[2021-04-22 06:04] LABS: ABS Monocytes 0.7 10^3/ul (0-0.8); ABS Neutrophils 4.7 10^3/ul (1.5-7.7); Eosinophil % 0.2 %; Hematocrit 33 % (42-52); Hemoglobin 11.1 g/dL (14.0-18.0); Lymphocyte % 15.2 %; Mean Corpuscular HGB Conc 33 g/dL (31-36); Mean Corpuscular Hemoglobin 30 pg (27-31); Mean Corpuscular Volume 90 fL (80-94); Mean Platelet Volume 8.5 fL (7.4-10.4); Nucleated Red Blood Cells % 0.1; Platelet Count 207 10^3/uL (150-450); Red Cell Distribution Width 17 % (10-15); White Blood Count 6.3 10^3/uL (3.5-10.8)
[2021-04-22 06:24] LABS: Calcium 9.3 mg/dL (8.6-10.3); Potassium 3.6 mmol/L (3.5-5.0); eGFR CKD-EPI 86.5 (>60)
[2021-04-22] MEDS: KCL 20 MEQ/100 ML IVPREMIX 20 MEQ/100 ML BAG IV SCH ×2 (06:46→09:06)
[2021-04-22] MEDS ORDERED: Diltiazem IV push/loading dose 5 MG/ML 5 ML vial (25 mg) IV SLOW PU ONE (07:05)
[2021-04-22] MEDS: Cholecalciferol (VIT D3) 1,000 unit TAB PO SCH (09:08)
[2021-04-22] MEDS: Aspirin EC 81 mg TAB.EC (enteric coated) PO SCH (09:08)
[2021-04-22] MEDS: Potassium Chlor 20 meq TAB.ER PO SCH (09:12)
[2021-04-22] MEDS: Senna TAB 8.6 mg TAB PO SCH ×3 (09:12→20:22)
[2021-04-22] MEDS: Docusate LIQ 100 MG/10 ML UDC PO SCH ×2 (09:13→20:19)
[2021-04-22] MEDS: Ketorolac 0.5% OPHTH (NF) 0.5 % 5 ML BTL RIGHT EYE SCH ×3 (09:16→20:20)
[2021-04-22] MEDS: Ciprofloxacin 0.3% OPTH.SOL 5 ML BTL RIGHT EYE SCH ×3 (09:16→20:20)
[2021-04-22] MEDS: prednisoLONE 1% OPHTH.SUSP 5 ML OPHTH.SUSP RIGHT EYE SCH ×3 (09:16→20:20)
[2021-04-23] MEDS ORDERED: Digoxin IV 0.5 MG/2 ML AMP (0.25 MG/ML) IV SLOW PU ONE ×2 (04:23→05:44)
[2021-04-23 06:12] LABS: ABS Eosinophils 0.1 10^3/ul (0-0.6); ABS Lymphocytes 1.2 10^3/ul (1.0-4.8); ABS Monocytes 0.8 10^3/ul (0-0.8); ABS Neutrophils 5.6 10^3/ul (1.5-7.7); Eosinophil % 0.7 %; Hematocrit 34 % (42-52); Hemoglobin 11.7 g/dL (14.0-18.0); Lymphocyte % 15.2 %; Mean Corpuscular HGB Conc 34 g/dL (31-36); Mean Corpuscular Hemoglobin 31 pg (27-31); Mean Corpuscular Volume 91 fL (80-94); Mean Platelet Volume 8.3 fL (7.4-10.4); Nucleated Red Blood Cells % 0.1; Platelet Count 212 10^3/uL (150-450); Red Blood Count 3.77 10^6 /uL (4.18-5.48); Red Cell Distribution Width 17 % (10-15); White Blood Count 7.6 10^3/uL (3.5-10.8)
[2021-04-23 06:41] LABS: Albumin 3.1 g/dL (3.2-5.2); Albumin/Globulin Ratio 1.4 (1-3); Calcium 9.5 mg/dL (8.6-10.3); Globulin 2.2 g/dL (2-4); Potassium 3.8 mmol/L (3.5-5.0); Total Bilirubin 0.6 mg/dL (0.2-1.0); Total Protein 5.3 g/dL (6.4-8.9); eGFR CKD-EPI 85.6 (>60)
[2021-04-23] MEDS ORDERED: Potassium Chlor 20 meq TAB.ER PO ONE (07:07)
[2021-04-23] MEDS: Aspirin EC 81 mg TAB.EC (enteric coated) PO SCH (07:56)
[2021-04-23] MEDS: Cholecalciferol (VIT D3) 1,000 unit TAB PO SCH (07:57)
[2021-04-23] MEDS: Senna TAB 8.6 mg TAB PO SCH ×2 (08:15→20:17)
[2021-04-23] MEDS: Docusate LIQ 100 MG/10 ML UDC PO SCH ×2 (08:15→20:16)
[2021-04-23] MEDS: Potassium Chlor 20 meq TAB.ER PO SCH (08:27)
[2021-04-23] MEDS: prednisoLONE 1% OPHTH.SUSP 5 ML OPHTH.SUSP RIGHT EYE SCH ×3 (08:28→20:28)
[2021-04-23] MEDS: Ketorolac 0.5% OPHTH (NF) 0.5 % 5 ML BTL RIGHT EYE SCH ×3 (08:28→20:18)
[2021-04-23] MEDS: Ciprofloxacin 0.3% OPTH.SOL 5 ML BTL RIGHT EYE SCH ×3 (08:28→20:24)
[2021-04-23] MEDS ORDERED: Diltiazem IV push/loading dose 5 MG/ML 5 ML vial (25 mg) IV SLOW PU ONE (11:03)
[2021-04-23 16:22] LABS: C Reactive Protein 3.14 mg/L (<8.01)
[2021-04-24 06:43] LABS: Calcium 9.7 mg/dL (8.6-10.3); Digoxin 1.2 ng/ml (0.8-2.0); Potassium 3.8 mmol/L (3.5-5.0)
[2021-04-24] MEDS: Ketorolac 0.5% OPHTH (NF) 0.5 % 5 ML BTL RIGHT EYE SCH ×3 (09:45→21:54)
[2021-04-24] MEDS: Ciprofloxacin 0.3% OPTH.SOL 5 ML BTL RIGHT EYE SCH ×3 (09:45→21:56)
[2021-04-24] MEDS: Aspirin EC 81 mg TAB.EC (enteric coated) PO SCH (10:04)
[2021-04-24] MEDS: Docusate LIQ 100 MG/10 ML UDC PO SCH ×2 (10:05→21:43)
[2021-04-24] MEDS: Senna TAB 8.6 mg TAB PO SCH ×2 (10:05→21:43)
[2021-04-24] MEDS: Cholecalciferol (VIT D3) 1,000 unit TAB PO SCH (10:05)
[2021-04-24] MEDS: prednisoLONE 1% OPHTH.SUSP 5 ML OPHTH.SUSP RIGHT EYE SCH ×3 (10:07→21:54)
[2021-04-24] MEDS: Potassium Chlor 20 meq TAB.ER PO SCH ×2 (12:26→21:45)
[2021-04-24] MEDS ORDERED: Diltiazem IV push/loading dose 5 MG/ML 5 ML vial (25 mg) IV SLOW PU ONE ×2 (21:32→22:18)
[2021-04-24] MEDS: Metoprolol Tartrate 5 mg VIAL 5 ml VIAL (1 mg/ml) IV SCH (23:17)
[2021-04-25] MEDS: Metoprolol Tartrate 5 mg VIAL 5 ml VIAL (1 mg/ml) IV SCH (01:16)
[2021-04-25 04:52] LABS: Hematocrit 36 % (42-52); Hemoglobin 12.2 g/dL (14.0-18.0); Mean Corpuscular HGB Conc 34 g/dL (31-36); Mean Corpuscular Hemoglobin 31 pg (27-31); Mean Corpuscular Volume 90 fL (80-94); Mean Platelet Volume 8.3 fL (7.4-10.4); Platelet Count 227 10^3/uL (150-450); Red Blood Count 3.97 10^6 /uL (4.18-5.48); Red Cell Distribution Width 17 % (10-15); White Blood Count 7.1 10^3/uL (3.5-10.8)
[2021-04-25 05:26] LABS: Calcium 9.4 mg/dL (8.6-10.3); Magnesium 1.9 mg/dL (1.9-2.7); eGFR CKD-EPI 89.7 (>60)
[2021-04-25 05:33] LABS: Acanthocytes 1+
[2021-04-25 05:34] LABS: ABS Eosinophils 0.1 10^3/ul (0-0.6); ABS Lymphocytes 1.2 10^3/ul (1.0-4.8); ABS Neutrophils 4.8 10^3/ul (1.5-7.7); Eosinophil % 0.9 %; Lymphocyte % 16.5 %; Nucleated Red Blood Cells % 0.1
[2021-04-25] MEDS ORDERED: Diltiazem IV push/loading dose 5 MG/ML 5 ML vial (25 mg) IV SLOW PU ONE (07:50)
[2021-04-25] MEDS: Cholecalciferol (VIT D3) 1,000 unit TAB PO SCH (08:19)
[2021-04-25] MEDS: Aspirin EC 81 mg TAB.EC (enteric coated) PO SCH (08:20)
[2021-04-25] MEDS: Potassium Chlor 20 meq TAB.ER PO SCH ×2 (08:22→20:12)
[2021-04-25] MEDS: Docusate LIQ 100 MG/10 ML UDC PO SCH ×2 (08:25→20:12)
[2021-04-25] MEDS: Senna TAB 8.6 mg TAB PO SCH ×2 (08:25→20:13)
[2021-04-25] MEDS: Ketorolac 0.5% OPHTH (NF) 0.5 % 5 ML BTL RIGHT EYE SCH ×3 (08:25→20:12)
[2021-04-25] MEDS: prednisoLONE 1% OPHTH.SUSP 5 ML OPHTH.SUSP RIGHT EYE SCH ×3 (08:25→20:13)
[2021-04-25] MEDS: Ciprofloxacin 0.3% OPTH.SOL 5 ML BTL RIGHT EYE SCH ×3 (08:25→20:12)
[2021-04-26 06:21] LABS: ABS Eosinophils 0.1 10^3/ul (0-0.6); ABS Lymphocytes 1.3 10^3/ul (1.0-4.8); ABS Monocytes 1.1 10^3/ul (0-0.8); ABS Neutrophils 5.5 10^3/ul (1.5-7.7); Eosinophil % 1.8 %; Hematocrit 35 % (42-52); Hemoglobin 11.6 g/dL (14.0-18.0); Lymphocyte % 16.6 %; Mean Corpuscular HGB Conc 34 g/dL (31-36); Mean Corpuscular Hemoglobin 30 pg (27-31); Mean Corpuscular Volume 90 fL (80-94); Mean Platelet Volume 8.5 fL (7.4-10.4); Platelet Count 204 10^3/uL (150-450); Red Blood Count 3.85 10^6 /uL (4.18-5.48); Red Cell Distribution Width 17 % (10-15); White Blood Count 8.1 10^3/uL (3.5-10.8)
[2021-04-26 06:46] LABS: Calcium 9.7 mg/dL (8.6-10.3); Potassium 3.9 mmol/L (3.5-5.0); eGFR CKD-EPI 85.3 (>60)
[2021-04-26] MEDS: Aspirin EC 81 mg TAB.EC (enteric coated) PO SCH (10:18)
[2021-04-26] MEDS: Cholecalciferol (VIT D3) 1,000 unit TAB PO SCH (10:18)
[2021-04-26] MEDS: Senna TAB 8.6 mg TAB PO SCH ×2 (10:19→20:25)
[2021-04-26] MEDS: Potassium Chlor 20 meq TAB.ER PO SCH ×2 (10:19→20:24)
[2021-04-26] MEDS: Docusate LIQ 100 MG/10 ML UDC PO SCH ×2 (10:20→20:25)
[2021-04-26] MEDS: Ciprofloxacin 0.3% OPTH.SOL 5 ML BTL RIGHT EYE SCH ×3 (10:22→20:25)
[2021-04-26] MEDS: prednisoLONE 1% OPHTH.SUSP 5 ML OPHTH.SUSP RIGHT EYE SCH ×3 (10:22→20:25)
[2021-04-26] MEDS: Ketorolac 0.5% OPHTH (NF) 0.5 % 5 ML BTL RIGHT EYE SCH ×3 (10:22→20:25)
[2021-04-26 18:35] LABS: Rapid COVID-19 Molecular Undetected (Undetected)
[2021-04-27] MEDS: Cholecalciferol (VIT D3) 1,000 unit TAB PO SCH (08:59)
[2021-04-27] MEDS: Senna TAB 8.6 mg TAB PO SCH (08:59)
[2021-04-27] MEDS: Aspirin EC 81 mg TAB.EC (enteric coated) PO SCH (08:59)
[2021-04-27] MEDS ORDERED: Enoxaparin 100 MG/ML SYR SUBCUT SCH (09:00)
[2021-04-27] MEDS: Ketorolac 0.5% OPHTH (NF) 0.5 % 5 ML BTL RIGHT EYE SCH ×2 (09:01→13:29)
[2021-04-27] MEDS: prednisoLONE 1% OPHTH.SUSP 5 ML OPHTH.SUSP RIGHT EYE SCH ×2 (09:01→13:29)
[2021-04-27] MEDS: Ciprofloxacin 0.3% OPTH.SOL 5 ML BTL RIGHT EYE SCH ×2 (09:01→13:28)
[2021-04-27] MEDS: Docusate LIQ 100 MG/10 ML UDC PO SCH (09:44)
[2021-04-27] MEDS: Potassium Chlor 20 meq TAB.ER PO SCH (09:55)
[2021-04-27 14:56] VITALS: BP 111/50
== END 2021-04-27 15:20 | disposition short-term general hospital (02) | DRG 201 ==
LOC: ED 12:52 → ICU 14:00 → SUATTDRO 16:09 → EDHOLD 16:09 → ICU 20:43 → MEDTELE 04-22 00:30
PROVIDERS: ADMIT Surgery Surgical Critical Care; ATTEND Internal Medicine